=== PATIENT | female | born 1950 | race Caucasian/White ===

== ENCOUNTER 2016-04-27 06:29 | Day surgery (SDC) | payer MEDICARE, OTHER ==
[~2016-04-27] VITALS: Ht 162.6 cm; Wt 122.7 kg
[~2016-04-27 06:29] MED LIST: ALPR.25 PO; CYMB30CA PO; FENO160T2 PO; HYDR-3129 PO; LEVO.025 PO; NEXI40CA PO; SUCR1TAB PO; TAB-TAB PO; VITA200017 PO; [UNRECOGNIZED DRUG - CODE] PO
[2016-04-27 06:52] VITALS: BP 111/84; PULSE 82; RESP 20; TEMP 97.7; O2SAT 95
[2016-04-27] MEDS ORDERED: SODIUM CHLORID 0.9% 500 ML INJ 500 ML IV SCH (07:00)
[2016-04-27] MEDS ORDERED: CALC0.25 PO (07:08)
[2016-04-27] MEDS ORDERED: ALPR.25 PO (07:08)
[2016-04-27] MEDS ORDERED: HYDR-3366 PO (07:08)
[2016-04-27] MEDS ORDERED: TIZA4CAP3 PO (07:08)
[2016-04-27] MEDS ORDERED: FOLI5CAP PO (07:08)
[2016-04-27] MEDS ORDERED: LISI10TA3 PO (07:08)
[2016-04-27] MEDS ORDERED: LEVO25TA4 PO (07:08)
[2016-04-27] MEDS ORDERED: ULOR40TA PO (07:08)
[2016-04-27] MEDS ORDERED: PLAV75TA29 PO (07:08)
[2016-04-27] MEDS ORDERED: CYMB60CA PO (07:08)
--- NOTE | 2016-04-27 11:37 | RADRPT ---
EXAM DATE/TIME: 04/27/2016 10:57 [place] COMPARISON: No previous studies available for comparison. INDICATIONS : Evaluate size of aneurysm, left side abdomen pain. ORAL CONTRAST: No oral contrast ingested. RADIATION DOSE: 26.74 CTDIvol (mGy) MEDICAL HISTORY : Arthritis. Thyroid disease SURGICAL HISTORY : Cholecystectomy. Hysterectomy.Lap band,Renal stones, hiatal hernia ENCOUNTER: Initial ACUITY: 1 day PAIN SCALE: 5/10 LOCATION: Left Abdomen TECHNIQUE: Volumetric scanning of the abdomen and pelvis was performed. Using automated exposure control and ad justment of the mA and/or kV according to patient size, radiation dose was kept as low as reasonably achievable to obtain optimal diagnostic quality images. FINDINGS: There is minimal linear scarring at the lung bases. Small hiatal hernia. No acute findings in the liver, spleen, adrenals, right kidney or pancreas. Previous cholecystectomy. Left kidney is atrophic. There is a 5.8 x 5.4 cm infrarenal abdominal aortic aneurysm. No evidence for rupture on current exam ination. Postoperative hysterectomy noted. No pelvic mass or free fluid. No adenopathy. CONCLUSION: 1. 5.8 x 5.4 cm infrarenal abdominal aortic aneurysm without evidence for rupture. No prior study for comparison. 2. Atrophic left kidney. 3. Postoperative cholecystectomy, hysterectomy and lower back surgery. Liam Ramsey MD on April 27, 2016 at 11:28 Board Certified Radiologist. This report was verified electronically.
== END 2016-04-27 11:31 | disposition home or self-care (01) ==
LOC: HRAD 06:29 → HRIP 06:34 → EDSTATUS 07:00 → HRAD 11:31
PROVIDERS: ATTEND Surgery Vascular Surgery
DX: I71.4 Abdominal aortic aneurysm, without rupture (principal); E07.9 Disorder of thyroid, unspecified; M19.90 Unspecified osteoarthritis, unspecified site; Z90.710 Acquired absence of both cervix and uterus
CPT/HCPCS: 74176; 82565; 84520; 96365; 96366; J7040

== ENCOUNTER 2016-06-14 16:49 | Inpatient (IN) | payer MEDICARE, OTHER ==
[~2016-06-14] VITALS: Ht 162.6 cm; Wt 122.0 kg
[~2016-06-14 16:49] MED LIST changes: +CALC0.25 PO; -CYMB30CA PO; +CYMB60CA PO; -FENO160T2 PO; +FOLI5CAP PO; -HYDR-3129 PO; +HYDR-3366 PO; -LEVO.025 PO; +LEVO25TA4 PO; +LISI10TA3 PO; -NEXI40CA PO; +PLAV75TA29 PO; -SUCR1TAB PO; -TAB-TAB PO; +TIZA4CAP3 PO; +ULOR40TA PO; -VITA200017 PO; -[UNRECOGNIZED DRUG - CODE] PO
[2016-06-15] VITALS (10 sets, daily range): BP systolic 144–160; BP diastolic 73–97; PULSE 63–78; RESP 18–20; TEMP 97.3–97.9; O2SAT 98–100
[2016-06-15] MEDS ORDERED: HEPARIN SODIUM - SQ 10,000 UNITS/ML VIAL ONE ×2 (10:42→12:56)
[2016-06-15] MEDS ORDERED: BUPIVACAINE/EPINEPHRINE 0.5% PF 30 ML VIAL ONE (10:42)
[2016-06-15] MEDS ORDERED: HEPARIN SODIUM - IV 10,000 UNITS/10 ML VIAL ONE (10:43)
[2016-06-15] MEDS ORDERED: METOPROLOL TARTRATE 25 MG TAB PO PRN (10:45)
[2016-06-15] MEDS ORDERED: SODIUM CHLORID 0.9% 500 ML IV PRN (10:45)
[2016-06-15] MEDS ORDERED: ceFAZolin 1,000 MG/NS 100 ML IV SCH ×2 (10:45)
[2016-06-15] MEDS ORDERED: INSULIN HUMAN REGULAR 1,000 UNITS/10 ML VIAL SQ PRN (10:45)
[2016-06-15] MEDS ORDERED: CHLORHEXIDINE GLUCONATE 2 % 1 PACK (2 CLOTHS) TOPICAL PRN (10:45)
[2016-06-15] MEDS ORDERED: POVIDONE IODINE 5% (ANTISEPSIS KIT) 4 APPLICATIONS EACH NARE PRN (10:45)
[2016-06-15] MEDS ORDERED: LACTATED RINGER'S 1000 ML IV PRN (10:45)
[2016-06-15 11:23] LABS: AUTOMATED NEUTROPHIL # 4.2 TH/MM3 (1.8-7.7); BASOPHIL % 0.6 % (0.0-2.0); EOSINOPHIL # 0.3 TH/MM3 (0-0.4); EOSINOPHIL % 3.8 % (0.0-4.0); HEMATOCRIT 32.2 % (35.0-46.0); HEMO FLAGS DIFF FINAL; MEAN CELL VOLUME 82.2 FL (80.0-100.0); MEAN CORPUSCULAR HEMOGLOBIN 27.1 PG (27.0-34.0); MONO % 6.6 % (0.0-8.0); PLATELET COUNT 266 TH/MM3 (150-450); RED BLOOD COUNT 3.92 MIL/MM3 (4.00-5.30); RED CELL DISTRIBUTION WIDTH 15.5 % (11.6-17.2); WHITE BLOOD COUNT 6.9 TH/MM3 (4.0-11.0)
[2016-06-15 11:31] LABS: APTT (PATIENT) 28.2 SEC (24.3-30.1); INTERNATIONAL NORMALIZED RATIO 0.9 RATIO; PROTHROMBIN TIME - PATIENT 10.3 SEC (9.8-11.6)
[2016-06-15] MEDS ORDERED: FAMOTIDINE 20 MG/2 ML VIAL ONE ×2 (11:42→11:44)
[2016-06-15] MEDS ORDERED: MIDAZOLAM HCL 2 MG/2 ML VIAL ONE ×3 (11:42→15:01)
[2016-06-15 11:46] LABS: BICARBONATE 18.6 MEQ/L (21.0-32.0); POTASSIUM 4.8 MEQ/L (3.5-5.1)
[2016-06-15] MEDS ORDERED: SODIUM CHLORID 0.9% 500 ML INJ 500 ML IV ONE (12:00)
[2016-06-15] MEDS ORDERED: PROTAMINE SULFATE 50 MG/5 ML VIAL IV ONE (12:00)
[2016-06-15] MEDS ORDERED: ePHEDrine/NS 25 MG/5 ML SYR IV ONE (12:00)
[2016-06-15] MEDS ORDERED: PROPOFOL 200 MG/20 ML AMP IV ONE (12:00)
[2016-06-15] MEDS ORDERED: NORMOSOL R INJ 1,000 ML IV ONE (12:00)
[2016-06-15] MEDS ORDERED: NEOSTIGMINE METHYLSULFATE 10 MG/10 ML VIAL IV PUSH ONE (12:00)
[2016-06-15] MEDS ORDERED: IOHEXOL 300 MG/ML 50 ML BTL (for RAD DIAG) IV ONE (12:00)
--- NOTE | 2016-06-15 12:41 | EKG ---
Date Performed: 06/15/2016 Time Performed: 11:22:06 PTAGE: 65 years EKG: Sinus rhythm NORMAL ECG NO PREVIOUS TRACING DOCTOR: Shun Bowden Interpretating Date/Time 06/15/2016 12:39:41
[2016-06-15] MEDS ORDERED: IOHEXOL 300 MG/ML 100 ML BTL (for Rad CT) OTHER ONE ×2 (13:04→13:40)
[2016-06-15] MEDS ORDERED: fentaNYL CITRATE 250 MCG/5 ML AMP ONE (15:02)
[2016-06-15] MEDS ORDERED: DO NOT ADM ANY ANTICOAGULANT DRUGS PRN (15:44)
[2016-06-15] MEDS ORDERED: oxyCODONE/ACETAMINOPHEN 5 MG/325 MG TAB PO PRN (16:30)
[2016-06-15] MEDS ORDERED: *morphine SULFATE 8 MG/ML PERIprocedure ONLY ONE (16:33)
[2016-06-15] MEDS ORDERED: SODIUM CHLORIDE 0.9% FLUSH 10 ML FLUSH IV FLUSH PRN ×2 (16:45)
[2016-06-15] MEDS ORDERED: ENALAPRILAT 1.25 MG/ML VIAL IV PUSH PRN (16:45)
[2016-06-15] MEDS ORDERED: LABETALOL HCL 100 MG/20 ML VIAL IV PUSH PRN (16:45)
[2016-06-15] MEDS ORDERED: SODIUM CHLOR 0.9% 1000 ML INJ 1,000 ML IV SCH (16:45)
[2016-06-15] MEDS ORDERED: NITROPRUSSIDE 50 MG/D5W 250 ML IV SCH ×2 (16:45)
[2016-06-15] MEDS ORDERED: MORPHINE SULFATE 4 MG/ML INJ IV PUSH PRN (16:45)
[2016-06-15] MEDS ORDERED: [UNRECOGNIZED DRUG - REMARK] OTHER SCH (17:00)
[2016-06-15] MEDS ORDERED: cloNIDine HCL 0.1 MG TAB PO PRN (17:00)
[2016-06-15] MEDS ORDERED: ALPRAZolam 0.25 MG TAB PO PRN (17:00)
[2016-06-15] MEDS ORDERED: POTASSIUM CHLORIDE 20 MEQ CONTROLLED RELEASE TAB PO PRN (17:00)
[2016-06-15] MEDS ORDERED: ONDANSETRON HCL 4 MG/2 ML VIAL IV PUSH PRN (23:15)
[2016-06-15] MEDS: ACETAMINOPHEN/HYDROcodone 325 MG/10 MG TAB PO PRN (23:37)
[2016-06-16] VITALS (17 sets, daily range): BP systolic 134–155; BP diastolic 69–80; PULSE 64–79; RESP 18; TEMP 97.7–97.9; O2SAT 97–100
[2016-06-16] MEDS: ACETAMINOPHEN/HYDROcodone 325 MG/10 MG TAB PO PRN ×2 (05:17→13:17)
[2016-06-16] MEDS ORDERED: LEVOTHYROXINE SODIUM 25 MCG TAB PO SCH (06:00)
[2016-06-16] MEDS ORDERED: CALCITRIOL 0.25 MCG CAP PO SCH (09:00)
[2016-06-16] MEDS ORDERED: ASPIRIN 81 MG CHEW TAB PO SCH (09:00)
[2016-06-16] MEDS ORDERED: DULoxetine HCl DR 60 MG CAP PO SCH (09:00)
[2016-06-16] MEDS ORDERED: ULORIC 40 MG PO SCH (09:00)
[2016-06-16] MEDS ORDERED: FOLIC ACID 1 MG TAB PO SCH (09:00)
[2016-06-16] MEDS ORDERED: LISINOPRIL 10 MG TAB PO SCH (09:00)
--- NOTE | 2016-06-19 09:29 | MP ---
cc: JEN DAWKINS M.D. DATE OF SURGERY: 06/15/2016 PREOPERATIVE DIAGNOSIS Infrarenal abdominal aortic aneurysm - 5.8 cm maximal diameter. POSTOPERATIVE DIAGNOSIS Infrarenal abdominal aortic aneurysm - 5.8 cm maximal diameter. OPERATIVE PROCEDURE Endovascular aneurysm repair. SURGEON Jen Dawkins MD MULCHER OPERATOR ALENA Martinez ANESTHESIA General endotracheal. DESCRIPTION OF OPERATIVE PROCEDURE With the patient in the supine position and under general endotracheal anesthesia, the abdomen, both groins and thighs were prepped with Betadine and draped in a sterile fashion. One gram of Ancef was administered intravenously and following a protocol timeout, the skin and subcutaneous tissue tissues within both proposed incisional areas preemptively infiltrated with 0.5% Marcaine with epinephrine. Oblique 4 cm incisions were performed within the right and left inguinal skin creases along Maynor's lines. Dissection was continued sharply through the underlying adipose tissue. The common, superficial and profunda femoral arteries were circumferentially mobilized and encircled with double-loop vessel loops. Both common femoral arteries were accessed with 18 gauge needles, J-wires advanced under fluoroscopic guidance into the iliac arteries and 7-Moldovan hemostatic sheaths deployed over the J-wires. Angled Glidewire and Berenstein catheter combinations were negotiated into the thoracic aorta. The Glidewires were exchanged for Amplatz wires followed by deployment of 18 and 12-Moldovan hemostatic sheaths via the right and left femoral arteries respectively. The patient was systemically heparinized with 5000 units. A Marker Pigtail Flush catheter was placed immediately cephalad to the renal artery origins and aortograms completed to accurately delineate origin of the renal arteries. 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 The main body endoprosthesis was pre-positioned and pre-deployed followed by engagement of the contralateral iliac gate with an angled Warren, Berenstein catheter combination. A balloon was inflated within the main body endoprosthesis to ensure appropriate endoluminal localization followed by flush left iliac angiogram to allow appropriate length selection for the contralateral limb. The contralateral limb was placed and deployed. The main body deployment was completed followed by balloon angioplasty of the overlap areas, proximal and distal steal zones. Completion aortogram confirmed secure repair with no technical defects or endoleak. The right and left common femoral access sites were secured with interrupted 6-0 Prolene. Heparin was reversed with 20 mg of protamine. Robust Doppler flow was confirmed within the right and left superficial and profunda femoral arteries. Both groin incisions were closed with two separate deep layers of continuous 4-0 Monocryl, skin re-approximated with continuous subcuticular 5-0 Monocryl. Prevena dressings were applied. At the conclusion of the procedure pedal pulses were easily palpable with robust biphasic Doppler flow and vital signs were normal. The patient returned to the recovery room in stable condition having tolerated the procedure well. Jen Dawkins MD JTS/BT /8:01 AM /9:15 AM
== END 2016-06-16 16:00 | disposition home or self-care (01) | DRG 269 ==
LOC: HSDI 06-15 10:18 → HCIN 06-15 17:56
PROVIDERS: ADMIT Surgery Vascular Surgery; ATTEND Surgery Vascular Surgery
PROC: 03HY32Z Insertion of Monitoring Device into Upper Artery, Percutaneous Approach (ICD-10-PCS; 2016-06-15)
PROC: 04V03DZ Restriction of Abdominal Aorta with Intraluminal Device, Percutaneous Approach (ICD-10-PCS; principal; 2016-06-15 11:47)
PROC: B41DZZZ Fluoroscopy of Aorta and Bilateral Lower Extremity Arteries (ICD-10-PCS; 2016-06-15 11:47)
DX: I71.4 Abdominal aortic aneurysm, without rupture (principal); N18.4 Chronic kidney disease, stage 4 (severe); Z68.42 Body mass index [BMI] 45.0-49.9, adult; I12.9 Hypertensive chronic kidney disease with stage 1 through stage 4 chronic kidney disease, or unspecified chronic kidney disease; E78.5 Hyperlipidemia, unspecified; E03.9 Hypothyroidism, unspecified; E66.9 Obesity, unspecified; F32.9 Major depressive disorder, single episode, unspecified; K21.9 Gastro-esophageal reflux disease without esophagitis; F17.210 Nicotine dependence, cigarettes, uncomplicated; I70.1 Atherosclerosis of renal artery; R73.03 Prediabetes
CPT/HCPCS: 75630; 80048; 85025; 85610; 85730; 86850; 86900; 86901; 86920; 93005; C1725; C1769; J0690; J1644; J2250; J2270; J2710; J2720; J3010; J7030; J7040; J7120; Q9967